=== PATIENT | female | born 1960 | race Hispanic/Latino ===

== ENCOUNTER 2022-09-08 09:00 | Outpatient (RCR) | payer OTHER ==
[~2022-09-08 09:00] MED LIST: ALDACTONE25 MG PO; SPIRONOLACTONE25 MG PO
== END 2022-09-12 ==
LOC: PT 09:00
PROVIDERS: ATTEND Neurological Surgery
DX: M47.896 Other spondylosis, lumbar region (principal); M62.81 Muscle weakness (generalized); M53.86 Other specified dorsopathies, lumbar region

== ENCOUNTER 2022-09-13 08:11 | Outpatient (RCR) | payer OTHER | END 2022-10-12 | LOC: PT 08:11 | PROVIDERS: ATTEND Neurological Surgery | DX: M47.896 Other spondylosis, lumbar region (principal); M62.81 Muscle weakness (generalized); M53.86 Other specified dorsopathies, lumbar region ==